=== PATIENT | male | born 1975 | race Caucasian/White ===

== ENCOUNTER → 2023-10-20 | Outpatient (CLI) | payer OTHER ==
--- NOTE | 2023-10-20 09:01 | US ---
EXAMINATION TYPE: US liver DATE OF EXAM: 10/20/2023 COMPARISON: NONE CLINICAL INDICATION: Male, 48 years old with history of R76.8 hepatitis c antibody E03.9 HYPOTHYROID; Patient states he has hep C. Prior drug use. No other pain or symptoms. TECHNIQUE: Multiple sonographic images of the right upper quadrant are obtained. FINDINGS: EXAM MEASUREMENTS: Liver Length: 16.1 cm Gallbladder Wall: 0.2 cm CBD: 0.5 cm Right Kidney: 9.5 x 4.0 x 5.6 cm REPRODUCER NOTES:Slightly limited due to overlying gas Pancreas: Portions obscured by gas Liver: Echotexture is felt to be within normal limits no evidence versus dilated duct, mass or cystic structure. Gallbladder: Patient had coffee prior to exam. Unable to fully evaluate due to contraction of GB. Evidence for sonographic Saunders's sign: No CBD: wnl Right Kidney: No hydronephrosis or masses seen as best visualized IMPRESSION: No evidence for acute process. No suspicious liver observations.
--- NOTE | 2023-10-20 09:57 | US ---
EXAMINATION TYPE: US thyroid st tissue head/neck DATE OF EXAM: 10/20/2023 COMPARISON: NONE CLINICAL INDICATION: Male, 48 years old with history of R76.8 hepatitis c antibody E03.9 HYPOTHYROID; Patient states he is on thyroid medication. No other symptoms or known nodules. GLAND SIZE: Right Lobe: 5.2 x 1.4 x 1.2 cm Overall Parenchyma: homogeneous Left Lobe: 5.2 x 1.6 x 1.1 cm Overall Parenchyma: homogeneous Isthmus Thickness: 0.2 cm NODULES RIGHT: # of nodules measured on right: 0 LEFT: # of nodules measured on left: 0 ISTHMUS: # of nodules measured in the isthmus: 0 Bilateral neck scanned, no evidence of lymphadenopathy. IMPRESSION: No suspicious thyroid nodules.
== END | disposition home or self-care (01) ==
LOC: RADUSWWP 07:38
PROVIDERS: ATTEND Family Medicine
DX: R76.8 Other specified abnormal immunological findings in serum (principal); E03.9 Hypothyroidism, unspecified; B19.20 Unspecified viral hepatitis C without hepatic coma
CPT/HCPCS: 76536; 76705